=== PATIENT | female | born 1950 | race American Indian/Alaskan Native ===

== ENCOUNTER 2016-10-23 16:58 | Outpatient (CLI) | payer OTHER ==
[2016-01-07 22:40] VITALS: BP 111/66
--- NOTE | 2016-10-23 17:27 | Diagnostic Imaging Report ---
[facility] [address] [facility] [address] Report Submission Date: Oct 23, 2016 5:19:30 PM [employer] Patient Study Name: DANIEL MALIK Date: Oct 23, 2016 5:04:09 PM [employer] Modality Type: CR Gender: F Description: CHEST : 54 Institution: [facility] Physician: LAMONT LAZARO Chest - two views Clinical history: Right-sided chest pain after coughing. Sinus congestion. Findings: Examination of the chest in PA and lateral views with comparison to examination of 01/07/2016 demonstrates discoid atelectasis in the lingula. The lungs are otherwise clear. Cardiovascular and mediastinal silhouettes are stable. Bony thorax is intact. Impression: 1. Discoid atelectasis in the lingula. 2. Aortic atherosclerosis. Electronically signed on Oct 23, 2016 5:19:30 PM [employer] by: Ole LAWSON
== END 2016-10-23 17:15 ==
LOC: RAD 16:58
PROVIDERS: ATTEND Emergency Medicine
DX: R05 Cough (principal); R07.89 Other chest pain
CPT/HCPCS: 71020

== ENCOUNTER 2017-03-12 17:40 | Outpatient (CLI) | payer OTHER ==
[2016-01-07 22:40] VITALS: BP 111/66
[2017-03-12 18:43] LABS: BASOPHILS % 0.6 (0.0-1.5); EOSINOPHILS % 1.5 % (0.0-6.8); MEAN CORPUSCULAR HEMOGLOBIN 33.1 pg (28.0-34.0); MEAN CORPUSCULAR VOLUME 95.6 fl (80.0-100.0); MONOCYTES % 4.2 % (0.0-11.0); NEUTROPHILS # 6.8 # k/uL (1.4-7.7)
[2017-03-12 18:47] LABS: eGFR (African) > 60; eGFR (Non-African) > 60
== END 2017-03-12 17:42 ==
LOC: LAB 17:40
PROVIDERS: ATTEND Family Medicine
DX: E78.2 Mixed hyperlipidemia (principal); E06.3 Autoimmune thyroiditis; I10 Essential (primary) hypertension; R53.82 Chronic fatigue, unspecified; E83.42 Hypomagnesemia
CPT/HCPCS: 80053; 80061; 83735; 84443; 85025

== ENCOUNTER 2017-05-18 11:16 | Outpatient (CLI) | payer OTHER ==
[2016-01-07 22:40] VITALS: BP 111/66
== END 2017-05-18 11:17 ==
LOC: CARD 11:16
PROVIDERS: ATTEND Internal Medicine Cardiovascular Disease
DX: Z53.9 Procedure and treatment not carried out, unspecified reason (principal)

== ENCOUNTER 2018-03-29 13:49 | Outpatient (CLI) | payer MEDICARE ==
[2016-01-07 22:40] VITALS: BP 111/66
== END 2018-03-29 13:50 ==
LOC: CARD 13:49
PROVIDERS: ATTEND Internal Medicine Cardiovascular Disease
DX: R06.09 Other forms of dyspnea (principal); I10 Essential (primary) hypertension; E78.5 Hyperlipidemia, unspecified
CPT/HCPCS: G0463

== ENCOUNTER 2018-05-06 23:30 | Observation (INO) | payer MEDICARE, OTHER ==
[2018-05-06] MEDS ORDERED: MORPHINE SULFATE 10 MG/ML CARTRIDGE IVP ONE (23:51)
[2018-05-06] MEDS ORDERED: ONDANSETRON HCL/PF 4 MG/ 2ML VIAL IVP ONE (23:51)
--- NOTE | 2018-05-07 00:12 | ED Physician Documentation ---
General Adult - HISTORIAN Historian: patient - HPI Stated Complaint: HTN, DIZZINESS, NAUSEA Chief Complaint: General Adult Additional Information: Dizzy and hypertension. Nauseated. Reached down to pick a tomato on 05/03. When she stood, she had immediate onset of dizziness and nausea which has not stopped since. Saw Dr. Griffiths the next day and was given script for meclizine. BP noted to be 170 +. Meclizine puts her to sleep, but dizziness is present when she wakes. Given exercises to treat her vertigo, but they aggravated the nausea so much that she was unable to do them. Went home from work last evening because of dizziness and nausea. Came to ER after BP noted to be 220 at home. She had already taken an extra dose of HCTZ 25 mg and a dose of meclizine. She presents to the ER with nausea, dizziness and all over STEPHENS. No other modifying factors or associated signs. - ROS CONST: no problems EYES/ENT: denies: problems with vision (denies), nasal congestion NEURO/PSYCH: headache - PAST HX Past History: hypertension, other (hypothyroid; HLD) Surgeries/Procedures: other (appy, hyst, cataracts, stents for glaucoma) Allergies/Adverse Reactions: Allergies Allergy/AdvReac Type Severity Reaction Status Date / Time cephalexin [From Keflex] Allergy Verified 05/07/18 01:29 ciprofloxacin [From Cipro] Allergy Verified 05/06/18 23:48 ciprofloxacin HCl Allergy Verified 05/06/18 23:48 [From Cipro] Sulfa (Sulfonamide Allergy Verified 05/06/18 23:48 Antibiotics) - SOCIAL HX Smoking History: non-smoker - FAMILY HX Family History: No - VITAL SIGNS Vital Signs: Vital Signs Temp Pulse Resp BP Pulse Ox 98.7 F 110 H 20 178/64 97 05/06/18 23:30 05/06/18 23:30 05/06/18 23:30 05/06/18 23:30 05/06/18 23:30 - REVIEWED ASSESSMENTS Nursing Assessment Reviewed: Yes Vitals Reviewed: Yes Progress - Progress Progress: No pain relief from Giving IV toradol. Report Submission Date: May 07, 2018 12:41:39 AM CDT Patient Study Name: DANIEL MALIK Date: May 07, 2018 12:12:15 AM CDT Modality Type: DX Gender: F Description: CHEST : 54 Institution: [facility] Physician: CARLOS REYNOLDS - ER PA chest Clinical history: Hypertension. Dizziness. Findings: Examination of the chest in single PA upright view demonstrates the lungs to be clear. Cardiovascular and mediastinal silhouettes are within normal limits. Bony thorax is intact. Impression: 1. No active disease. Electronically signed on May 07, 2018 12:41:39 AM CDT by: Ole Corey Report Submission Date: May 07, 2018 12:38:27 AM CDT Patient Study Name: DANIEL MALIK Date: May 07, 2018 12:08:00 AM CDT Modality Type: CT Gender: F Description: CT BRAIN W/O CONTRAST : 54 Institution: [facility] Physician: CARLOS REYNOLDS - ER CT brain noncontrast Date of study: 05/07/2018. CLINICAL HISTORY: PT STATES DIZZY X4 DAYS HYPERTENSION TECHNIQUE: 5 mm contiguous axial of the brain, noncontrast. Sagittal and coronal multiplanar reconstructions. FINDINGS: There is no evidence of intracranial mass effect, hemorrhage, or acute infarct. The lateral ventricles are symmetrical and the 4th ventricle is midline without shift. No acute brain parenchymal changes or extra-axial fluid collections are identified. The posterior fossa contents are within normal limits. The calvarium is intact. The visualized sinuses and mastoid air cells are clear. IMPRESSION: No acute intracranial process. Electronically signed on May 07, 2018 12:38:27 AM CDT by: Ole Corey 0208, STEPHENS gone. Feels quite shaky. BP 153/84. Discussed with Dr. Griffiths. Admit to obs to him. ED Results Lab/Radiology - Orders Orders: ED Orders Category Date Time Status Place IV Lock 1T Care 05/06/18 23:42 Completed CHEST 1VIEW [RAD] Stat Exams 05/06/[address] BRAIN W/O CONTRAST Stat Exams 05/06/18 Ordered CBC/PLATELET/DIFF Routine Lab 05/06/18 23:44 Received CMP Routine Lab 05/06/18 23:44 Received TROPONIN I (cTnI) Stat Lab 05/06/18 23:44 Received URINALYSIS Routine Lab 05/06/18 Ordered Morphine Sulfate Med 05/06/18 23:51 Discontinued 4 mg IVP NOW ONE Ondansetron HCl/Pf [Zofran 4 mg/2 ml] Med 05/06/18 23:51 Discontinued 4 mg IVP NOW ONE General Adult Physical Exam - PHYSICAL EXAM GENERAL APPEARANCE: moderate distress EENT: eye inspection normal, ENT inspection normal, pharynx normal NECK: normal inspection, supple. No: lymphadenopathy RESPIRATORY: chest non-tender, breath sounds normal CVS: reg rate & rhythm, heart sounds normal (with 1/6 COLLEEN) ABDOMEN: soft, normal bowel sounds, no distension, non-tender BACK: normal inspection, no CVA tenderness, other (no vertebral tenderness) SKIN: warm/dry, pallor EXTREMITIES: normal range of motion (gait and stance. thoracic kyphosis), no evidence of injury, no edema NEURO: CN's nml as tested, motor nml, sensation nml, cognition normal Discharge Clincal Impression: Dizziness Referrals: Richie Griffiths MD [Primary Care Provider] - 2 Days Condition: Fair Disposition: 09 ADMITTED INPATIENT Decision to Admit: [id number] Decision Time: 02:08
[2018-05-07 00:24] LABS: BASOPHILS % 0.4 (0.0-1.5); EOSINOPHILS % 1.3 % (0.0-6.8); MEAN CORPUSCULAR HEMOGLOBIN 32.6 pg (28.0-34.0); MEAN CORPUSCULAR VOLUME 93.7 fl (80.0-100.0); MONOCYTES % 4.2 % (0.0-11.0); NEUTROPHILS # 10.8 # k/uL (1.4-7.7)
[2018-05-07 00:26] LABS: eGFR (African) > 60; eGFR (Non-African) > 60
[2018-05-07] MEDS ORDERED: KETOROLAC TROMETHAMINE 30 MG/1ML VIAL IVP ONE (00:48)
[2018-05-07] MEDS ORDERED: LORazepam 2 MG/ML VIAL IVP ONE (01:59)
[2018-05-07] MEDS ORDERED: LORazepam 2 MG/ML VIAL ONE (02:00)
[2018-05-07] MEDS ORDERED: ALBUTEROL 90MCG/PUFF INHALER IH SCH (03:07)
[2018-05-07] MEDS ORDERED: LEVOTHYROXINE SODIUM 100 MCG TABLET ONE (03:50)
[2018-05-07] MEDS ORDERED: LEVOTHYROXINE SODIUM 25 MCG TABLET ONE (03:50)
[2018-05-07] MEDS ORDERED: MULTIVITAMIN 1 EACH TABLET ONE (03:50)
[2018-05-07] MEDS ORDERED: ASPIRIN EC 81 MG TABLET.DR ONE (03:50)
[2018-05-07 04:34] VITALS: BMI 27.1
[2018-05-07] MEDS ORDERED: ACETAMINOPHEN 500 MG TABLET PO PRN (06:22)
[2018-05-07] MEDS ORDERED: ACETAMINOPHEN 500 MG TABLET ONE (06:34)
[2018-05-07] MEDS ORDERED: LEVOTHYROXINE SODIUM 137 MCG PO SCH ×2 (07:00→09:00)
[2018-05-07] MEDS ORDERED: ASPIRIN 81 MG CHEW TAB PO SCH (09:00)
[2018-05-07] MEDS ORDERED: [UNRECOGNIZED DRUG - OTHER] PO SCH (09:00)
[2018-05-07] MEDS ORDERED: SALINE FLUSH 10 ML DISP.SYRIN IV SCH (09:00)
[2018-05-07] MEDS ORDERED: DIAZEPAM 5 MG TABLET PO ONE ×2 (09:06→09:21)
[2018-05-07] MEDS ORDERED: amLODIPine BESYLATE 5 MG TABLET PO SCH ×2 (09:56→13:00)
[2018-05-07] MEDS ORDERED: HYDROCHLOROTHIAZIDE 25 MG TABLET PO SCH ×2 (09:57→13:00)
[2018-05-07] MEDS ORDERED: HYDROCHLOROTHIAZIDE 25 MG TABLET PO ONE (12:04)
[2018-05-07] MEDS ORDERED: amLODIPine BESYLATE 5 MG TABLET ONE (12:05)
--- NOTE | 2018-05-07 12:12 | Diagnostic Imaging Report ---
CARLOS REYNOLDS [facility] [address] [facility] [address] [address] Report Submission Date: May 07, 2018 12:41:39 AM CDT Patient Study Name: DANIEL MALIK Date: May 07, 2018 12:12:15 AM CDT Modality Type: DX Gender: F Description: CHEST : 54 Institution: [facility] Physician: CARLOS REYNOLDS PA chest Clinical history: Hypertension. Dizziness. Findings: Examination of the chest in single PA upright view demonstrates the lungs to be clear. Cardiovascular and mediastinal silhouettes are within normal limits. Bony thorax is intact. Impression: 1. No active disease. Electronically signed on May 07, 2018 12:41:39 AM CDT by: Ole LAWSON
--- NOTE | 2018-05-07 12:13 | Diagnostic Imaging Report ---
CARLOS REYNOLDS [facility] [address] [facility] [address] [place], [place]. [address] Report Submission Date: May 07, 2018 12:38:27 AM CDT Patient Study Name: DANIEL MALIK Date: May 07, 2018 12:08:00 AM CDT Modality Type: CT Gender: F Description: CT BRAIN W/O CONTRAST : 54 Institution: [facility] Physician: CARLOS REYNOLDS CT brain noncontrast Date of study: 05/07/2018. CLINICAL HISTORY: PT STATES DIZZY X4 DAYS HYPERTENSION TECHNIQUE: 5 mm contiguous axial of the brain, noncontrast. Sagittal and coronal multiplanar reconstructions. FINDINGS: There is no evidence of intracranial mass effect, hemorrhage, or acute infarct. The lateral ventricles are symmetrical and the 4th ventricle is midline without shift. No acute brain parenchymal changes or extra-axial fluid collections are identified. The posterior fossa contents are within normal limits. The calvarium is intact. The visualized sinuses and mastoid air cells are clear. IMPRESSION: No acute intracranial process. Electronically signed on May 07, 2018 12:38:27 AM CDT by: Ole LAWSON
[2018-05-07 14:20] VITALS: BP 118/56
[2018-05-08 01:05] LABS: APPEARANCE,URINE CLOUDY (CLEAR); COLOR,URINE YELLOW (YELLOW); OCCULT BLOOD,URINE 1+ (NEGATIVE); UROBILINOGEN URINE 0.2 Eu (0.2-1.0)
[2018-05-08] MEDS ORDERED: HYDROCHLOROTHIAZIDE 25 MG TABLET PO SCH (09:00)
[2018-05-08] MEDS ORDERED: amLODIPine BESYLATE 5 MG TABLET PO SCH (09:00)
--- NOTE | 2018-05-09 07:35 | Discharge Summary ---
Discharge Summary - Discharge Sumary History of Present Illness: 67-year-old white female who has been having some benign positional vertigo for 1 week. Patient was started on meclizine but stated she is not been taken it because it makes her sleepy. Patient was given instructions and how to do Liss maneuvers. However when she attempted to do the she became very dizzy and nauseated. On the day of admission patient was noted to be dizzy once again and her blood pressure was increased to 220 systolic leave. Patient had taken an extra dose of her blood pressure medicine. Patient had developed a headache. Patient was subsequently seen in the emergency room CT scan of the head with done it did not show any acute intracranial process. Patient was subsequently admitted to the hospital because she was nauseated not able to keep in the liquids down. Home Medications: Ambulatory Orders Medication Instructions Recorded Acetaminophen [Tylenol Extra 500 mg PO Q4H PRN tablet 05/07/18 Strength] Diazepam [Valium] 5 mg PO Q6 PRN #20 tablet 05/07/18 Allergies/Adverse Reactions: Allergies Allergy/AdvReac Type Severity Reaction Status Date / Time cephalexin [From Keflex] Allergy Verified 05/07/18 01:29 ciprofloxacin [From Cipro] Allergy Verified 05/06/18 23:48 ciprofloxacin HCl Allergy Verified 05/06/18 23:48 [From Cipro] Sulfa (Sulfonamide Allergy Verified 05/06/18 23:48 Antibiotics) Hospital Course: Patient was started on IV fluids. Patient was given Zofran to help with the nausea. Patient was started on Valium to help with the dizziness. At the time of dismissal patient was taking an oral food and hydration. Patient was still dizzy but was able to ambulate without much difficulties. Patient was subsequently discharged home in stable condition. - Final Diagnosis (1) Benign paroxysmal positional vertigo Problems: Patient will continue on Valium at this time as needed. Patient with is vied to move slowly. She continues to have problems will need follow up with an ear nose and throat. (2) Essential hypertension Problems: Will continue at present medications for her hypertension. (3) Nausea & vomiting Problems: This seems to have resolved at this time.
== END 2018-05-07 18:50 | disposition home or self-care (01) ==
LOC: ED 23:30 → EDLOC 23:31 → UNDOADMOB 05-07 02:10 → SOUTH 05-07 02:10 → UNDODISOB 05-07 18:50
PROVIDERS: ADMIT Family Medicine; ATTEND Family Medicine
DX: R55 Syncope and collapse (principal); R11.2 Nausea with vomiting, unspecified; I10 Essential (primary) hypertension; E03.9 Hypothyroidism, unspecified; E78.5 Hyperlipidemia, unspecified
CPT/HCPCS: 70450; 71045; 80053; 81002; 84443; 84484; 85025; 93005; 96374; 96375; 99284; G0378; J1885; J2060; J2270; J2405; 99217; S1016

== ENCOUNTER 2018-05-11 10:34 | Outpatient (CLI) | payer MEDICARE, OTHER ==
--- NOTE | 2018-05-12 16:04 | OP Clinic Progress Note ---
REASON FOR VISIT: This 67-year-old female has had about a week of problems with disequilibrium. She noted it began fairly abruptly when she bent over picking tomatoes in her garden and then standing up and she has had significant disequilibrium and imbalance since. Blood pressure has been noted to be at times 174/90 and I believe in the emergency room it was tracked at 220/120. By history, a CT of the head and laboratory work were normal. The patient is fairly aware of medical issues. 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 Patient had injections in her neck 4 years ago and it has not really bothered her since. She has some symptoms of benign positional vertigo, almost any motion seems to bother her. She is not particularly severely bothered turning over in bed. I did have her lie down in the clinic on the exam bed and turn onto her right shoulder and onto her left. She felt more symptomatic turning to the left side and almost not at all turning to the right. There is no wax of major significance in the ears. There was a small amount I cleaned from the right ear. It was not obstructive. Both eardrums are clear and clean. The umbo of the malleus of both eardrums are fairly significantly retracted. By history also patient has some intermittent issues with rhinitis, not particularly with headaches. Some stuffiness and congestion and takes antihistamines periodically. I have given options. She has tried meclizine but she got extremely tired with that. She has had 1 Liss maneuver that did not particularly change anything. She has fallen. She has a bruise on her knee. Given the options, the patient has opted to have a small myringotomy and I have chosen the left ear as opposed to the right, as the patient is a little more symptomatic turning to the left side. Also, today did an Liss turning from the right side to the left side. After doing a myringotomy and a small paper patch to the left ear, the patient' s hearing is equal to or slightly better. Her walk is equal to or slightly better than before the aforementioned procedures. Accepts a small percentage chance that the small myringotomy would not heal or leave a perforated eardrum. Aural hygiene was explained. PLAN: I will see the patient back in a month. She may return at any time p.r.n. sooner. cc: Dr. Richie LAWSON
== END 2018-05-11 10:36 ==
LOC: ENT 10:34
PROVIDERS: ATTEND Otolaryngology
DX: H81.49 Vertigo of central origin, unspecified ear (principal)
CPT/HCPCS: G0463

== ENCOUNTER 2018-07-31 06:59 | Outpatient (CLI) | payer MEDICARE, OTHER ==
[2018-07-31 08:00] LABS: eGFR (Non-African) > 60
== END 2018-07-31 07:00 ==
LOC: LAB 06:59
PROVIDERS: ATTEND Family Medicine
DX: R25.2 Cramp and spasm (principal)
CPT/HCPCS: 80048

== ENCOUNTER 2019-01-18 11:31 | Outpatient (CLI) | payer MEDICARE, OTHER ==
[2019-01-18 12:07] LABS: BASOPHILS % 1.2 % (0.0-1.5); EOSINOPHILS % 3.6 % (0.0-6.8); MEAN CORPUSCULAR HEMOGLOBIN 31.8 pg (28.0-34.0); MONOCYTES % 7.5 % (0.0-11.0); NEUTROPHILS # 4.6 # k/uL (1.4-7.7)
[2019-01-18 13:24] LABS: eGFR (Non-African) > 60
== END 2019-01-18 11:33 ==
LOC: LAB 11:31
PROVIDERS: ATTEND Family Medicine
DX: G60.9 Hereditary and idiopathic neuropathy, unspecified (principal); E87.6 Hypokalemia; E03.9 Hypothyroidism, unspecified
CPT/HCPCS: 36415; 80053; 84439; 84443; 84481; 85025

== ENCOUNTER 2019-02-28 06:10 | Outpatient (CLI) | payer MEDICARE, OTHER | END 2019-02-28 06:12 | LOC: LAB 06:10 | PROVIDERS: ATTEND Family Medicine | DX: E03.9 Hypothyroidism, unspecified (principal) | CPT/HCPCS: 36415; 84443 ==

== ENCOUNTER 2019-03-06 09:11 | Day surgery (SDC) | payer MEDICARE, OTHER ==
[~2019-03-06 09:11] MED LIST: LACTATED RINGERS 1,000 ML IV.SOLN IV ONE; LIDOCAINE HCL 2% PF 100MG/5ML VIAL IJ ONE; PROPOFOL 200 MG/20 ML VIAL IV ONE
--- NOTE | 2019-05-16 09:01 | GI Report ---
DATE OF PROCEDURE: 03/06/2019 REFERRING PHYSICIAN: Dr. Griffiths. PROCEDURE PERFORMED: Colonoscopy. SURGEON: Lynn Cannon M.D., Jacquelyn. INDICATION FOR PROCEDURE: The patients father of complications of colon cancer in his 60s. She has had a sister with colon cancer. The patient has had polyps in the past. She denies any interval change of stools. PROCEDURE MEDICATION: Propofol, as per Anesthesia. DESCRIPTION OF PROCEDURE: The Olympus video colonoscope was advanced through the rectum. A slightly atonic redundant colon took nurse compression and rotating to supine position to finally reach the base of the cecum. The appendiceal orifice is normal. The terminal ileum is normal. On slow withdrawal, the cecum, ascending colon and transverse colon, no obvious intraluminal lesions noted. Descending colon, sigmoid: Again some redundancy, and a few diverticula noted, particularly in the sigmoid. No diverticulitis. Retroflexion in the rectum was normal. The patient tolerated the procedure well. FINDINGS: 1. Mild diverticular disease of the sigmoid colon. 2. Slightly atonic redundant colon. RECOMMENDATIONS: 1. Would increase fiber in the diet. 2. Consider relook in the colon in 5 years because she has high risk family history, 2 first degree relatives with colon cancer in their 60s. LYNN CANNON M.D., F.Kimberly.CCeliaP. JENNIFER/nelson Job#: [id number] Cc: Dr. Griffiths [facility]
== END 2019-03-06 12:20 ==
LOC: OPSURG 09:11
PROVIDERS: ATTEND Internal Medicine Gastroenterology
DX: K57.30 Diverticulosis of large intestine without perforation or abscess without bleeding (principal); K63.89 Other specified diseases of intestine; Z86.010 Personal history of colon polyps; Z80.0 Family history of malignant neoplasm of digestive organs
CPT/HCPCS: 45378; J2001; J2704; J7120

== ENCOUNTER 2019-06-06 10:35 | Outpatient (CLI) | payer MEDICARE, OTHER | END 2019-06-06 10:37 | LOC: LAB 10:35 | PROVIDERS: ATTEND Family Medicine | DX: E03.9 Hypothyroidism, unspecified (principal); M06.09 Rheumatoid arthritis without rheumatoid factor, multiple sites | CPT/HCPCS: 36415; 84443; 85651; 86431 ==